=== PATIENT | male | born 1945 | race Caucasian/White ===

== ENCOUNTER 2019-02-09 18:46 | Emergency (ER) | payer MEDICARE, BC ==
--- OUTSIDE RECORDS SUMMARY | 2019-02-09 19:03 | XMS REPORT | Summary of Care ---
:1945 Author Organization [facility] Address [address] [facility] [place] [address] Care Team Providers Name Role Phone Rohan Shoemaker MD Primary Care Provider Reason for Visit Reason Comments Follow Up Encounter Details Date Type Department Care Team Description 01/30/2019 Office Visit Silvis Zhao Hernadez, Adenomatous polyp of ascending colon (Primary Dx); Surgery Infection of pacemaker pocket, initial encounter ([facility]) [facility] [place] [address] [place] [address] [phone] Allergies Active Allergy Reactions Severity Noted Date Comments Nizatidine GI Reaction 03/11/2004 Propoxyphene N-Apap GI Reaction 09/05/2007 Demerol GI Reaction 09/05/2007 Sulfa Antibiotics Rash 09/05/2007 documented as of this encounter (statuses as of 01/30/2019) Medications Medication Sig Dispensed Refills Start End Date Status Date ibuprofen (MOTRIN) Take 200 mg by 0 Active 200 MG Oral Tab mouth NEEDED for Pain. allopurinol take 1 tablet 90 Tab 3 Active (ZYLOPRIM) 100 MG by mouth once 8 Oral Tab daily Potassium 99 MG Take by mouth. 0 Active Oral Tab MAGNESIUM CITRATE Take by mouth. 0 Active PO methimazole TAKE 1/2 TABLET 45 Tab 3 Active (TAPAZOLE) 5 MG BY MOUTH DAILY 9 Oral TabIndications: Hyperthyroidism Pot & Sod Cit-Cit take 15 1419 mL 1 Active Ac (TRICITRATES) milliliters (1 9 550-500-334 MG/5ML tablespoonful) Oral Solution by mouth once daily carvedilol (COREG) TAKE 1 ATBLET 180 Tab 3 Active 25 MG Oral Tab BY MOUTH TWICE 9 A DAY WITH MEALS furosemide (LASIX) take 1 tablet 45 Tab 3 Active 40 MG Oral Tab by mouth every 9 other day atorvastatin take 1 tablet 90 Tab 3 Active (LIPITOR) 20 MG by mouth once 9 Oral Tab daily Omeprazole delayed take 1 capsule 180 Cap 3 Active rel cap 20 MG Oral by mouth twice 9 CAPSULE DELAYED a day RELEASE benazepril take 1 tablet 180 Tab 3 Active (LOTENSIN) 20 MG by mouth twice 9 Oral Tab a day warfarin (COUMADIN) Take 1-1.5 Tabs 120 Tab 3 Active 5 MG Oral by mouth DAILY. 9 TabIndications: As directed Paroxysmal atrial which is 5mg fibrillation (HCC) Sun and 7.5mg rest of week digoxin (LANOXIN, Take 0.125 mg 0 Active DIGITEK) 125 MCG by mouth DAILY. Oral Tab diazepam (VALIUM) Take 1 Tab by 60 Tab 0 Active 10 MG Oral mouth EVERY 9 TabIndications: TWELVE HOURS Arthralgia of both NEEDED (for knees restless leg). Tamsulosin HCl Take 1 Cap by 30 Cap 11 Active (FLOMAX) 0.4 MG mouth DAILY. 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 Elevated prostate specific antigen (PSA) 08/18/2017 ICD (implantable cardioverter-defibrillator), biventricular, in situ 2015 LBBB (left bundle branch block) 01/13/2016 Chronic systolic HF (heart failure) 01/13/2016 [facility] current use of anticoagulant therapy 06/04/2015 Overview: Managed by: [facility] Referring Provider: Joesph Indication: PAF Target Range: 2.0-3.0 Duration: Indefinite Additional factors influencing anticoagulation: Chads2 2 for hypertension and heart failure [id number] is 3 (age, hypertension and heart failure) Allopurinol (Zyloprim) increases Warfarin effect Ibuprofen (Motrin) increases anticoagulation and bleeding risk Tapazole (Methimazole) decreases Warfarin effect Omeprazole increases Warfarin effect Updated referral 05/2015, 03/2016, 07/2017 Updated orders 06/15/15, 07/08/16, 08/11/17 Atrial fibrillation 05/28/2014 BMI 30.0-30.9,adult 04/21/2013 Overview: This patient's BMI has been calculated and is above average, and BMI management plan is completed. General patient education discussion including: obesity-related excess mortality, weight loss link to reduction of risk factors for cardiac and other diseases, importance of long-term maintenance treatment in weight loss ASCVD (arteriosclerotic cardiovascular disease) 07/03/2012 Overview: 07/08/15: Pharmacologic Nuclear Stress Test Impression: A small area of mild fixed decreased perfusion appreciated in the mid anterior septal region of the left ventricle. Apical thinning is present. No evidence of significant reversible ischemia. Left ventricular ejection fraction 40%. 06/06/12: Left Heart Catheterization 30% proximal LAD stenosis 60% distal LAD stenosis 30-40% stenosis of lower branch of second diagonal 50% stenosis of proximal 2nd OM branch of the circumflex PLAN: 1. Postprocedure care. 2. Continue with aggressive risk factor modification and optimization of medications as tolerated. 3. If he develops chest discomfort or symptoms continue to worsen despite optimization of medical therapy, may consider fractional flow reserve of these lesions. 05/24/12: Coronary CTA IMPRESSION: 1. Moderate to severe obstructive coronary artery disease as described. 2. Normal LV size, mild concentric LVH, low normal global LV systolic function. 3. Normal LA, RA, RV size and function. 4. KELVIN with no thrombus, pulmonary veins with normal origins. 5. Structurally normal aortic and mitral valves. 6. No pericardial effusion. Abnormal cardiac CT angiography 06/06/2012 Thrombocytopenia 03/19/2012 Overview: On lab work since 2000, will watch periodically Dyslipidemia 05/03/2011 Cervical spondylosis without myelopathy 12/13/2010 Restless legs 06/13/2010 Paroxysmal atrial fibrillation 04/08/2010 GERD (gastroesophageal reflux disease) 12/02/2009 Sinoatrial node dysfunction 03/14/2008 Mobitz (type) II atrioventricular block 01/09/2008 Cardiac pacemaker in situ 11/02/2007 Overview: 06/11/04: Initial implantation of permanent pacemaker for syncope, left BBB, first degree AV block, chronotropic incompetence 03/31/08: Pacemaker Generator Replacement: Pulse Gen Mabie [id number] Altru A Guidant [id number] Implanted 06/11 / Serial # [id number] Atrial Lead: Guidant 4470 (implanted 06/11/04) / Serial # [id number] Ventriuclar Lead: Guidant 4088 flextend (implanted 06/11/04) / Serial # [id number] 09/07/15: Arrhythmia Center Interrogation Report There were several very brief (<10 seconds) episodes of atrial tachcardia. Pacemaker function appears normal. Calculus of kidney 10/25/2007 Overview: Uric acid Degeneration of lumbar or lumbosacral intervertebral disc 10/25/2007 First degree atrioventricular block 09/24/2007 Gout 09/11/2007 Hypertension, CARE PLAN INITIATED 09/05/2007 Nonischemic cardiomyopathy 09/05/2007 Overview: 06/29/15: Echocardiogram Left Ventricle Left ventricular size is mildly increased with mildly increased wall thickness. There is mild to moderate eccentric left ventricular hypertrophy. Global systolic function is moderately depressed, with an estimated ejection fraction of 35-40 %. There is moderate global hypokinesis with marked septal and apical dys-synchrony. FINAL IMPRESSION: Mild to moderate eccentric LVH with moderate global systolic dysfunction, EF 35-40%. Mild right heart enlargement with adequate RV function. No hemodynamically significant valve disease. No pulmonary hypertension. Meniere disease 09/05/2007 Hyperthyroidism 09/05/2007 Neck pain 09/05/2007 Overview: Two previous surgeries with anterior fusion of the neck. Pain in joint, shoulder region 07/04/2007 History of malignant neoplasm of kidney 04/11/2007 documented as of this encounter (statuses as of 01/30/2019) Resolved Problems Problem Noted Date Resolved Date Patient in clinical research study 02/11/2016 09/30/2016 Overview: NCT# [id number] QUARTET: study is to assess the safety of the Quartet 1457Q lead in patients who need resynchronization therapy (FACILITY MANAGER). Questions please contact Randell Cuba or Malu Ana Maria, Clinical Research at . Abnormal ventricular wall motion 05/03/2011 05/08/2014 Overview: 04/21/10: Persantine Pharmacologic Nuclear Stress Test Conclusions: A small area of moderate decreased perfusion noted in the mid anterior septal as well as mid to basilar inferior septal region of the left ventricle. Enlarged left ventricle with a depressed left ventricular ejection fraction at 38%. No evidence of significant reversible ischemia. Mechanical complication due to cardiac pacemaker (electrode) 03/17/200803/03 Acquired absence of kidney 11/02/2007 04/14/2009 Malignant neoplasm of kidney, except pelvis 10/25/2007 03/03/2009 Vertigo 09/11/2007 03/03/2009 Personal History of Kidney Stones 09/05/2007 01/05/2015 Overview: CT scan, 01/18/2007, showed bilateral renal stones, none obstructing ureters. documented as of this encounter (statuses as of 01/30/2019) Immunizations Name Administration Dates Next Due Depo Medrol (40mg) 05/13/2010 Hepatitis A Vaccine-Adult 06/09/2016 Influenza (IM) Preservative Free 03/07/2014, 03/28/2013, 03/14/2012, 04/08/2010 Influenza Vaccine High Dose 03/13/2018, 03/02/2017, 03/31/2016, 03/27/2015 Influenza Vaccine Whole 04/08/2009, 04/07/2008, 03/28/2007 PNEUMOCOCCAL POLYSACCHARIDE VACCINE 08/12/2009 Pneumococcal Conjugate(13 Valent) 08/26/2014 TDAP Vaccine 06/09/2016 documented as of this encounter Social History Tobacco Use Types Packs/Day Years Used Date Never Smoker Smokeless Tobacco: Never Used Alcohol Use Drinks/Week oz/Week Comments No 0 Standard drinks or equivalent 0.0 Sex Assigned at Date Recorded Not on file Job Start Date Occupation Industry Not on file Not on file Not on file Travel History Travel Start Travel End No recent travel history available. documented as of this encounter Last Filed Vital Signs Vital Sign Reading Time Taken Comments Blood Pressure 130/80 01/30/2019 1:29 PM EDT Pulse - - Temperature - - Respiratory Rate - - Oxygen Saturation - - Inhaled Oxygen Concentration - - Weight - - Height - - Body Mass Index - - documented in this encounter Progress Notes Zhao Torres MD - 01/30/2019 1:15 PM EDT [facility] Progress Note [address] [place] [address] Name: Demetrius Roe : 1945 Age: 73-y.o. CLINIC VISIT DATE: 01/30/2019 LOCATION: [facility] ATTENDING: Zhao Torres MD PCP: Rohan Shoemaker History of Present Illness Demetrius Roe is a 73-y.o. male with a history of a large adenomatous polyp of the ascending colon that was removed after a couple of colonoscopies last year. The pathology was consistent with tubular adenomatous and tubulovillous adenomatous change. There is no dysplastic disease. The last colonoscopy was done in late January and at that time all of the visible polyp had been removed and fulgurated. The patient has not had any major change down his bowels. He denies any rectal bleeding. He has had some upper GI distress at times. However, he is most concerned right now of intense fatigue that he has been experiencing. He has nostamina for physical activities. He is comfortable if he is just resting in the house but if he tries to do any work outside he is completely wiped out in 10 to 15 minutes. This is not associated with chest pain though he is never had chest pain with his heart disease. Physical Exam Vitals: Blood pressure 130/80., There is no height or weight on file to calculate BMI. Alert and oriented x3. Anicteric. Chest clear to auscultation. Heart S1-S2. Abdomen is soft and nontender. Data Review Labs: Lab Results Component Value Date WBC Count 5.52 09/11/2018 Hemoglobin 15.5 09/11/2018 Hematocrit 49.0 09/11/2018 Platelet Count 115 (L) 09/11/2018 , Lab Results Component Value Date Sodium 137 09/11/2018 Potassium 3.8 09/11/2018 Chloride 100 09/11/2018 CO2 27 09/11/2018 Glucose 105 (H) 09/11/2018 BUN 22 (H) 09/11/2018 Creatinine 1.1 09/11/2018 Calcium 9.3 09/11/2018 Total Protein 7.0 09/11/2018 Albumin 4.1 09/11/2018 AST 39 09/11/2018 ALT 40 09/11/2018 Alkaline Phosphatase 61 09/11/2018 Total Bilirubin 0.7 09/11/2018 Studies: Colonoscopy reports and pathology reports from last year are reviewed. Assessment and Plan: . 73-year-old gentleman with history of significant cardiac disease resents for a one-year follow-up after piecemeal snare excision of a large ascending colon polyp. He is doing well from a GI perspective except for occasional upper GI discomfort that may be related to some element of reflux. However,this occurs despite being on Prilosec twice a day. The chief concern though is his lack of stamina and the concern for worsening of his overall cardiaccondition. 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 I do think it is most appropriate at this time to hold on a repeat colonoscopic exam. I think it isabsolutely reasonable to wait 1 more year given the findings at his most recent colonoscopy and the pathology from the tissue. Therefore, we will facilitate the patient being seen by Dr. Chan in the GI clinic in one years time. At that time, he can be prepared for repeat colonoscopy as well as a repeat upper GI endoscopy, if it is felt appropriate. The patient and his understand. They will call in the interim if they have questions or concerns. Author: Zhao Torres MDElectronically signed by Zhao Torres MD at 12/2018 1:56 PM EDTdocumented in this encounter Plan of Treatment Date Type Specialty Care Team Description 01/31/2019 AntiCoag Anticoagulation 02/04/2019 Office Visit Cardiology Ethan Sanchez MD [facility] [place] [address] [phone] 02/05/2019 [facility] Arrhythmia Center 02/22/2019 GI Procedure Gastroenterology Dhara Chan MD [address] [place] [address] [phone] 05/13/2019 Office Visit Internal Medicine Rohan Shoemaker MD [address] [place] [address] [phone] 06/17/2019 [facility] Arrhythmia Center 07/17/2019 Office Visit Cardiology Ethan Sanchez MD [address] [place] [id number] [phone] 10/15/2019 [facility] Health Maintenance Due Date Last Done Comments ZOSTER IMMUNIZATION SERIES 12/10/1993 (1 of 2) FALL RISK ASSESSMENT 12/10/2008 MEDICARE ANNUAL WELLNESS 10/27/2017 10/27/2016 (Postponed), VISIT 01/05/2015 (Previously completed) DEPRESSION SCREENING 11/06/2018 11/06/2017 INFLUENZA VACCINE (#1) 2019 03/13/2018, 03/02/2017, 03/31/2016, Additional history exists LIPID DISORDER SCREENING 11/13/2019 11/12/2018, 09/11/2018, 03/20/2018, Additional history exists EGD (ESOPHAGODUODENOSCOPY) 01/05/2021 01/05/2018, 10/21/2014, 10/21/2014 COLONOSCOPY SCREENING 02/19/2021 02/19/2018, 01/05/2018, 10/21/2014, Additional history exists PNEUMOCOCCAL 65+YRS Completed 08/26/2014, 08/12/2009 HPV IMMUNIZATION SERIES Aged Out No longer eligible based on patient's age to complete this topic MENINGOCOCCAL VACCINE IMM Aged Out No longer eligible based on patient's age to complete this topic documented as of this encounter Goals Goal Patient Goal Associated Recent Patient-Stated? Author Type Problems Progress Blood Pressure Blood Pressure Hypertension, 130/80 No Skezas, < 140/90 CARE PLAN (01/30/2019 MD Rohan INITIATED 1:29 PM EDT) Note: Hypertension Care Plan Based on the patient's clinical history and according to JNC 8 guidelines target blood pressure goal is less than 140/90. Based on the patient's last blood pressure of BP: 122/70 mmHg the patient is at at goal. As your provider, it is important that I advise you regarding: your current medications and help you with any challenges you may face taking your medications as directed (ex. instructions, cost, side effects, and interactions). Important lifestyle changes: exercise, weight reduction, diet, dietary sodium reduction and medication compliance your clinical goals and how you can achieve success: weight reduction, exercise plan and diet improvements medication management: adjusted medications as appropriate patient education/self-management tools provided: Current self-management tools adequate To successfully manage my Hypertension I will: monitor my blood pressure daily, understanding that my goal is less than 140/ 90 per my healthcare provider's recommendation. I will schedule an appointment with my provider if consistent abnormal readings greater than 160/100. take medications every day as prescribed by my healthcare provider and if unable to take them I will discuss with my provider. monitor for symptoms of chest pain, chest tightness/pressure, irregular heartbeat, persistent dizziness, radiating arm pain, and neck or jaw pain. If any of these symptoms are noticed I will seek medical attention immediately by calling 911 exercise/walk 30 minutes 5 day(s) per week. If I experience chest pain, chest tightness, or shortness of breath, I will seek medical attention immediately. follow a diet rich in fruits, vegetables, and low-fat dairy products with reduced content of saturated & total fat. I will reduce my sodium intake daily. An example is the DASH diet. To obtain more information please refer to the DASH Eating Plan listed in Educational Resources. record my blood pressure results. SCADA Access[employer]ki is safe and secure way for you to do this in your medical record online. try to obtain an ideal body weight. My recent weight was Weight: 220 lb ( 99.791 kg). My weight loss goal for my next office visit is 215 lbs. limit alcohol consumption. For men two drinks per day and women one drink per day. if currently smoking, will discuss how to quit smoking with my healthcare provider and work towards quitting. Educational Resources: National Heart, Lung, & Blood Wann http://nhlbi.nih.gov/hbp/index.html The DASH Diet Eating Plan http://www.nhlbi.nih.gov/health/health-topics/ topics/dash/ Academy of Nutrition & DIetetics http://eatright.org National Smoking Cessation Site http://smokefree.gov Blood Pressure < Blood Pressure 130/80 (01/30/2019 1:29 No Rohan Shoemaker MD 150/90 PM EDT) Note: This is an individualized treatment (blood pressure) goal for Demetrius Roe: Displayed above (on the left) is your goal for blood pressure control. Your most recent blood pressure is also shown above, on the right. You should try to achieve blood pressures that are lower than your goal listed above (on the left). Weight increase vs. 18 mo min CHF 0 (01/15/2019 3:14 PM EDT) Rohan Leonard MD (lbs) < 5 Note: This is an individualized treatment (congestive heart failure, CHF) goal for Demetrius Roe: Displayed above (on the right) is how many pounds you are in excess of your lowest weight over the past 18 months. Note that lower numbers are better. Excessive weight gain often indicates fluid reten tion and worsening heart failure. You should contact your doctor immediately if the above number is too high (above your goal, the number on the left). Consume a [id number] diet Lifestyle No Rohan Shoemaker MD Note: This is an individualized lifestyle goal for Demetrius Roe: Please do not add additional salt to your food. Additional salt may lead to fluid retention and worsen your congestive heart failure. Take all prescribed medications as directed Self-management Rohan Leonard MD Note: This is an individualized self-management goal for Demetrius Roe: Please take all prescribed medications as directed. 1. Do not skip doses. If you cannot afford your medications, talk with your doctor. 2. Use a pill reminder system such as a pill box if needed. Your pharmacist can help you with this. 3. Contact your Pharmacy 5 days before your medication runs out. If you cannot take your medications for any reasons, talk with your doctor. 4. Please bring all of your medication bottles and inhalers (or a list of all your medications/inhalers) with you to every visit. Potential barriers to meeting all of your care plan goals will continue to be addressed on an ongoing basis. Check your weight daily Self-management Rohan Leonard MD Note: This is an individualized self-management goal for Demetrius Roe: Please check your weight daily. Refer to the accompanying CHF treatment goal and call your doctor immediately for further instructions on how to respond to unexpected weight gain. documented as of this encounter Implants Implanted Type Area Efficiency Miner Device Shelf Model / Identifier Expiration Serial / Date Lot Altrua 20 Left: GUIDANT CARDIAC [id number] / Implanted: Qty: 1 on 03/31/2008 at [facility] [employer] , [place] [id number] / Lda 210q/65 Optisure - [id number] N/A: Chest [facility], 2016 [id number] / Implanted: Qty: 1 on 02/11/2016 by Randell Cuba MD at [facility] [id number] / Optisense Lead - [id number] N/A: Chest [facility], [id number] / Implanted: Qty: 1 on 02/11/2016 by Randell Cuba MD at [facility] [id number] / Quadra Assura Mp [id number] Paint Maker-D - [id number] N/A: Chest [facility] , 12/23/2017 [id number] / Implanted: Qty: 1 on 02/11/2016 by Randell Cuba MD at [facility] [id number] / Quartet Lead [id number] N/A: Chest [facility] 1457Q-86 / Implanted: Qty: 1 on 02/11/2016 by Randell Cuba MD at [facility]/PACESETTE [id number] / R documented as of this encounter Results Not on filedocumented in this encounter Visit Diagnoses Diagnosis Adenomatous polyp of ascending colon - Primary Infection of pacemaker pocket, initial encounter (HCC) documented in this encounter Insurance Payer Benefit Plan / Subscriber ID Effective Dates Phone Address Type Group MEDICARE MEDICARE PART A & xxxxxxxxxxx 2008-Present Medicare B [employer] xxxxxxxxx Effective for all [place] dates (Home) [phone] [place] [address] (Work) documented as of this encounter
--- OUTSIDE RECORDS SUMMARY | 2019-02-09 19:03 | XMS REPORT | Summary of Care ---
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 allopurinol (ZYLOPRIM) take 1 tablet by 90 Tab 3 02/22/2018 Active 100 MG Oral Tab mouth once daily Potassium 99 MG Oral Take by mouth. 0 Active Tab MAGNESIUM CITRATE PO Take by mouth. 0 Active methimazole (TAPAZOLE) TAKE 1/2 TABLET BY 45 Tab 3 07/24/2018 Active 5 MG Oral MOUTH DAILY TabIndications: Hyperthyroidism Pot & Sod Cit-Cit Ac take 15 1419 mL 1 10/10/2018 Active (TRICITRATES) milliliters (1 550-500-334 MG/5ML tablespoonful) by Oral Solution mouth once daily carvedilol (COREG) 25 TAKE 1 ATBLET BY 180 Tab 3 10/16/2018 Active MG Oral Tab MOUTH TWICE A DAY WITH MEALS furosemide (LASIX) 40 take 1 tablet by 45 Tab 3 11/12/2018 Active MG Oral Tab mouth every other day atorvastatin (LIPITOR) take 1 tablet by 90 Tab 3 11/12/2018 Active 20 MG Oral Tab mouth once daily Omeprazole delayed rel take 1 capsule by 180 Cap 3 11/12/2018 Active cap 20 MG Oral CAPSULE mouth twice a day DELAYED RELEASE benazepril (LOTENSIN) take 1 tablet by 180 Tab 3 11/12/2018 Active 20 MG Oral Tab mouth twice a day warfarin (COUMADIN) 5 Take 1-1.5 Tabs by 120 Tab 3 2018 Active MG Oral mouth DAILY. As TabIndications: directed which is Paroxysmal atrial 5mg Sun and 7.5mg fibrillation (HCC) rest of week diazepam (VALIUM) 10 Take 1 Tab by 60 Tab 0 01/15/2019 Active MG Oral mouth EVERY TWELVE TabIndications: HOURS NEEDED Arthralgia of both (for restless knees leg). Tamsulosin HCl Take 1 Cap by 30 Cap 11 01/15/2019 Active (FLOMAX) 0.4 MG Oral mouth DAILY. 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 06/04/2015 Overview: Managed by: [facility] Referring Provider: Joesph Indication: PAF Target Range: 2.0-3.0 Duration: Indefinite Additional factors influencing anticoagulation: Chads2 2 for hypertension and heart failure [id number] is 3 (age, hypertension and heart failure) [...] incompetence 03/31/08: Pacemaker Generator Replacement: Pulse Gen Jadwin [id number] Altru A Guidant [id number] Implanted 06/11 / Serial # [id number] Atrial Lead: Guidant 4470 (implanted 06/11/04) / Serial # [id number] Ventriuclar Lead: Guidant 4088 flextend (implanted 06/11/04) / Serial # [id number] 09/07/15: Arrhythmia Center Interrogation Report There were [...] as of this encounter (statuses as of 02/06/2019) Resolved Problems Problem Noted Date Resolved Date Patient in clinical research study 02/11/2016 09/30/2016 Overview: NCT# [id number] QUARTET: study is to assess the safety of the Quartet 1457Q lead in patients who need resynchronization therapy (WELLNESS DIRECTOR). Questions please contact Randell Cuba or Malu Rodgers, Clinical Research at . Abnormal ventricular wall [...] as of this encounter (statuses as of 02/06/2019) Immunizations Name Administration Dates Next Due Depo [...] Sign Reading Time Taken Comments Blood Pressure - - Pulse - - Temperature 36.2 02/05/2019 10:15 AM EDT C (97.2 F) Respiratory Rate - - Oxygen Saturation - - Inhaled Oxygen Concentration - - Weight 82.8 kg (182 lb 8 oz) 02/05/2019 10:15 AM EDT Height 175.3 cm (5' 9") 02/05/2019 10:15 AM EDT Body Mass Index 26.95 02/05/2019 10:15 AM EDT documented in this encounter Discharge Summaries Ethan Sanchez MD - 02/05/2019 11:50 AM EDTBrief Cardiology Note ( Duplicate): Patient arrived for planned cardioversion but EKG on arrival showed A-sensed V- paced rhythm. Deviceinterrogation confirmed that patient had converted from atrial flutter to sinus since his office visit with me yesterday. As such, Arrhythmia Center device interrogation was completed (LV lead capturethreshold was higher so outputs adjusted), but patient sent home without procedure. Will f/u with me in the office in the next 3-4 months and continue his current medications in the meantime. Ethan Sanchez MDElectronically signed by Ethan Sanchez MD at 2018 12:13 PM EDTdocumented in this encounter Progress Notes Ethan Sanchez MD - 02/05/2019 11:[facility] Patient arrived for planned cardioversion but EKG on arrival showed A-sensed V- paced rhythm. Deviceinterrogation confirmed that patient had converted from atrial flutter to sinus since his office visit with me yesterday. As such, Arrhythmia Center device interrogation was completed (LV lead capturethreshold was higher so outputs adjusted), but patient sent home without procedure. Will f/u with me in the office in the next 3-4 months and continue his current medications in the meantime. Ethan Sanchez MD documented in this encounter Plan of Treatment Date Type Specialty Care Team Description 02/27/2019 AntiCoag Anticoagulation 02/27/2019 Office Visit Cardiology Ethan Sanchez MD [address] [place] [address] [phone] 05/13/2019 Office Visit Internal Medicine Rohan Shoemaker MD [address] [place] [address] [phone] 06/17/2019 [facility] Arrhythmia Center 07/17/2019 Office Visit Cardiology Ethan Sanchez MD [address] [place] [address] [phone] 10/15/2019 [facility] Arrhythmia Center Name Type Priority Associated Diagnoses Order Schedule MAGNESIUM LEVEL Lab Routine Paroxysmal atrial fibrillation Expected: 2018 (HCC) (Approximate), Expires: 02/05/2020 Health Maintenance Due Date Last Done Comments [...] Problems Progress Blood Pressure Blood Pressure Hypertension, 132/82 No [place], < 140/90 CARE PLAN (02/04/2019 MD Rohan INITIATED 4:18 PM EDT) Note: Hypertension Care Plan Based [...] Educational Resources. record my blood pressure results. [employer] Test[employer] is safe and secure way for you [...] Educational Resources: National Heart, Lung, & Blood [place] http://nhlbi.nih.gov/hbp/index.html The DASH Diet Eating Plan http://www.nhlbi.nih.gov/health/health-topics/ topics/dash/ Academy of Nutrition & DIetetics http://eatright.org National Smoking Cessation Site http://smokefree.gov Blood Pressure < Blood Pressure 132/82 (02/04/2019 4:18 No Rohan Shoemaker MD 150/90 PM EDT) [...] the left). Weight increase vs. 18 mo CHF 1.5 (02/05/2019 10:15 AM EDT) Rohan Leonard MD min (lbs) < 5 Note: This is an [...] the number on the left). 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, 2016 [id number] / Implanted: Qty: 1 on 02/11/2016 by Randell Cuba MD at [facility] [id number] / Optisense Lead - [id number] N/A: Chest [facility], [id number] / Implanted: Qty: 1 on 02/11/2016 by Randell Cuba MD at [facility] [id number] / Keshava Cindy Mp [id number] Surgical Lead-D - [id number] N/A: Chest [facility] , 12/23/2017 [id number] / Implanted: Qty: 1 on 02/11/2016 by Randell Cuba MD at [facility] [id number] / Quartet Lead [id number] N/A: Chest [facility] [id number]-86 / Implanted: Qty: 1 on 02/11/2016 by Randell Cuba MD at [facility]/PACESETTE [id number] / R documented as of this encounter Procedures Procedure Name Priority Date/Time Associated Diagnosis Comments IN PT/ED 12 LEAD STAT 02/05/2019 10:13 Persistent atrial Results for this EKG AM EDT fibrillation (HCC) procedure are in the results section. documented in this encounter Results IN PT/ED 12 LEAD EKG (02/05/2019 10:13 AM EDT) Ventricular Rate 72 BPM CARDIOLOGY DEPARTMENT Atrial rate 72 BPM CARDIOLOGY DEPARTMENT P-R Interval 138 ms CARDIOLOGY DEPARTMENT QRS Duration 164 ms CARDIOLOGY DEPARTMENT Q-T Interval 464 ms CARDIOLOGY DEPARTMENT QTC Calculation 508 ms CARDIOLOGY (Bezet) DEPARTMENT P [place] 91 degrees CARDIOLOGY DEPARTMENT R [place] -63 degrees CARDIOLOGY DEPARTMENT T [place] 100 degrees CARDIOLOGY DEPARTMENT Diagnosis Line Atrial-sensed ventricular-paced rhythm CARDIOLOGY Abnormal ECG DEPARTMENT When compared with ECG of 12-JUL-2018 14:51, Sinus rhythm has replaced Atrial-paced rhythm Confirmed by KARI KELLY ([id number]) ([id number]) on 02/06/2019 11:53:57 AM Specimen Performing Organization Address City/State/Zipcode Phone Number CARDIOLOGY DEPARTMENT documented in this encounter Visit Diagnoses Diagnosis Paroxysmal atrial fibrillation (HCC) Atrial fibrillation documented in this encounter (Work) documented as of this encounter Advance Directives Code Status Date Activated Date Inactivated Comments Full Code 02/05/2019 9:59 AM Does the patient have decision making capacity? Yes Order was discussed with: Patient I discussed all options and patient/surrogate requested and agreed to: Full Code
--- OUTSIDE RECORDS SUMMARY | 2019-02-09 19:03 | XMS REPORT | Summary of Care ---
:1945 Author Organization [facility] Address [address] [place] [address] Care Team Providers Name Role Phone Rohan Shoemaker MD Primary Care Provider Reason for Visit Reason Comments Breathing Problem Pt. reports an increase of Shortness of Breath. Reports an increase in AFIB. Fatigue Pt. reports an increase in Fatigue over the past few months. Medication Management Pt. reports off Digoxin at this time. Encounter Details Date Type Department Care Team Description 02/04/2019 Office Visit [facility] [facility], Paroxysmal atrial fibrillation (HCC) (Primary Dx); Cardiology MD Ethan Chronic systolic HF (heart failure) (HCC); [address] [facility] ICD (implantable cardioverter-defibrillator), biventricular, [place] [address] [place] [address] [phone] Allergies Active Allergy Reactions Severity Noted Date Comments Nizatidine GI Reaction 03/11/2004 Propoxyphene N-Apap GI Reaction 09/05/2007 Demerol GI Reaction 09/05/2007 Sulfa Antibiotics Rash 09/05/2007 documented as of this encounter (statuses as of 02/04/2019) Medications Medication Sig Dispensed Refills Start End [...] (HCC) Sun and 7.5mg rest of week diazepam (VALIUM) Take 1 Tab by 60 Tab 0 Active 10 MG Oral mouth EVERY 9 TabIndications: TWELVE HOURS Arthralgia of both NEEDED (for knees restless leg). Tamsulosin HCl Take 1 Cap by 30 Cap 11 Active (FLOMAX) 0.4 MG mouth DAILY. 9 Oral Cap amLodipine take 1 tablet 90 Tab 3 Active (NORVASC) 5 MG Oral by mouth once 9 Tab daily digoxin (LANOXIN, Take 0.125 mg 0 02/05/20 Discontinued DIGITEK) 125 MCG by mouth DAILY. 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 06/04/2015 Overview: Managed by: [facility] Referring Provider: Joesph Indication: PAF Target Range: 2.0-3.0 Duration: Indefinite Additional factors influencing anticoagulation: Chads2 2 for hypertension and heart failure [id number] is 3 (age, hypertension and heart failure) [...] incompetence 03/31/08: Pacemaker Generator Replacement: Pulse Gen [id number] Altru A Guidant 4470 Implanted 06/11 / Serial # [id number] Atrial Lead: Guidant 4470 (implanted 06/11/04) / Serial # [id number] Ventriuclar Lead: Guidant 4088 flextend (implanted 06/11/04) / Serial # [id number] 09/07/15: [facility]ia Center Interrogation Report There were [...] as of this encounter (statuses as of 02/04/2019) Resolved Problems Problem Noted Date Resolved Date Patient in clinical research study 02/11/2016 09/30/2016 Overview: NCT# [id number] QUARTET: study is to assess the safety of the Quartet 1457Q lead in patients who need resynchronization therapy (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 Questions please contact Randell Cuba or Malu [...] as of this encounter (statuses as of 02/04/2019) Immunizations Name Administration Dates Next Due Depo [...] Sign Reading Time Taken Comments Blood Pressure 132/82 02/04/2019 4:18 PM EDT Pulse 80 02/04/2019 4:18 PM EDT Temperature - - Respiratory Rate - - Oxygen Saturation - - Inhaled Oxygen Concentration - - Weight 82.1 kg (181 lb) 02/04/2019 4:18 PM EDT Height 177.8 cm (5' 10") 02/04/2019 4:18 PM EDT Body Mass Index 25.97 02/04/2019 4:18 PM EDT documented in this encounter Patient Instructions Patient InstructionsEthan Sanchez MD - 02/04/2019 4:20 PM EDT No medication changes today. As we discussed, we'll try to get a cardioversion done tomorrow when you' re there for the device check. We'll get your labs checked first thing when you get there tomorrow. Follow up with me a couple weeks after the cardioversion. documented in this encounter Progress Notes Ethan Sanchez MD - 02/04/2019 4:20 PM EDT [place] [facility] Note Patient: Demetrius Roe Date of : 1945 Date of Service: 02/04/2019 REFERRING PRACTITIONER: Rohan Shoemaker PRIMARY CARE PROVIDER: Rohan Shoemaker Chief Complaint: Chief Complaint Patient presents with Breathing Problem Pt. reports an increase of Shortness of Breath. Reports an increase in AFIB. Fatigue Pt. reports an increase in Fatigue over the past few months. Medication Management Pt. reports off Digoxin at this time. History of Present Illness: We had the pleasure of seeing Demetrius Roe today at the [facility]. He is a 73-y.o. 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 Mr. Roe returns to cardiology clinic today for close f/u after his ICD interrogations have shownpersistent atrial flutter since November. Since his last visit with me he reports that he's been quite exhausted with smaller amounts of activity than in the past. He's also noted some mild dyspnea in the AM, which usually occurs when he's lying down. Gets occasional palpitations but no lightheadednessor syncope. No chest pains/pressure. Weight has been stable. No LE edema. I had been in touch with him shortly after his interrogation results and he tried restarting digoxin to help improve his rates. This did not change symptoms at all so he's now off that again. No bleeding issues on warfarinand INR has been in therapeutic range for over 3 months. Patient Active Problem List Diagnosis History of malignant neoplasm of kidney Pain in joint, shoulder region Hypertension, CARE PLAN INITIATED Nonischemic cardiomyopathy (HCC) Meniere disease Hyperthyroidism Neck pain Gout First degree atrioventricular block Calculus of kidney Degeneration of lumbar or lumbosacral intervertebral disc Cardiac pacemaker in situ Mobitz (type) II atrioventricular block Sinoatrial node dysfunction (HCC) GERD (gastroesophageal reflux disease) Paroxysmal atrial fibrillation (HCC) Restless legs Cervical spondylosis without myelopathy Dyslipidemia Thrombocytopenia (HCC) Abnormal cardiac CT angiography ASCVD (arteriosclerotic cardiovascular disease) BMI 30.0-30.9,adult 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 LBBB (left bundle branch block) Chronic systolic HF (heart failure) (HCC) ICD (implantable cardioverter-defibrillator), biventricular, in situ Elevated prostate specific antigen (PSA) Central serous chorioretinopathy of right eye Adenomatous polyp of ascending colon Infection of pacemaker pocket ([facility]) Past Medical History: Diagnosis Date Actinic keratosis AF (paroxysmal atrial fibrillation) ([facility]) Arthritis Asthma Blood in urine Cardiomyopathy ([facility]) 09/05/2007 Chronic systolic HF (heart failure) ([facility]) 01/13/2016 Endocrine problem Fainting Fractures Gout Headache(784.0) Hypertension 09/05/2007 Hyperthyroidism 09/05/2007 ICD (implantable cardioverter-defibrillator), biventricular, in situ 2015 Intermediate coronary syndrome (HCC) LBBB (left bundle branch block) 09/05/2007 Leg swelling Meniere disease 09/05/2007 Neck pain 09/05/2007 Nonspecific abnormal electrocardiogram (ECG) (EKG) Other malignant neoplasm without specification of site renal Personal History of Kidney Stones 09/05/2007 Problems with hearing Reflux Renal cell carcinoma (HCC) Subjective visual disturbance, unspecified Unspecified essential hypertension Vertigo 09/11/2007 Past Surgical History: Procedure Laterality Date CATHETERIZATION HEART LEFT 06/06/2012 Procedure: CATHETERIZATION HEART LEFT; Surgeon: Donte Brown MD; Location: [facility]; Laterality:N/A; LT HEART CATH VIA LT RADIAL & HEMOBAND CHOLECYSTECTOMY 1995 COLONOSCOPY N/A 02/19/2018 Procedure: COLONOSCOPY WITH complex polypectomy from the ascending colon; Surgeon: Zhao Torres MD; Location: [facility] MAIN OR INSERT PERMNT PACEMAKER,INITIAL/REPLACEMENT,TYPE DEV NS 06/11/04 generator change 03/31/08 INSERTION BI-VENTRICULAR ICD N/A 02/11/2016 Procedure: INSERTION BI-VENTRICULAR ICD; Surgeon: Randell Cuba MD; Location: [facility] CCL OTHER CERVICAL FUSION 1996 C7-T1 NC ANESTH,KID STONE DESTRUCT 11/1999 Bi-lateral renal stones NC PARTIAL REMOVAL OF KIDNEY On left, for renal cell carcinoma. NC REMOVAL GALLBLADDER TOTAL HIP REPLACEMENT Right hip. Allergies Allergen Reactions Axid [Nizatidine] GI Reaction Darvocet [Propoxyphene N-Apap] GI Reaction Demerol GI Reaction Sulfa Antibiotics Rash Current Outpatient Medications Medication allopurinol (ZYLOPRIM) 100 MG Oral Tab amLodipine (NORVASC) 5 MG Oral Tab atorvastatin (LIPITOR) 20 MG Oral Tab benazepril (LOTENSIN) 20 MG Oral Tab carvedilol (COREG) 25 MG Oral Tab diazepam (VALIUM) 10 MG Oral Tab digoxin (LANOXIN, DIGITEK) 125 MCG Oral Tab furosemide (LASIX) 40 MG Oral Tab ibuprofen (MOTRIN) 200 MG Oral Tab MAGNESIUM CITRATE PO methimazole (TAPAZOLE) 5 MG Oral Tab Omeprazole delayed rel cap 20 MG Oral CAPSULE DELAYED RELEASE Pot & Sod Cit-Cit Ac (CYTRA-3) 550-500-334 MG/5ML Oral Syrup Potassium 99 MG Oral Tab warfarin (COUMADIN) 5 MG Oral Tab Family History Problem Relation Age of Onset Cancer Father Prostate Diabetes Mother Heart Mother angina Social History Socioeconomic History Marital status: Spouse name: Not on file Number of children: Not on file Years of education: Not on file Highest education level: Not on file Occupational History Not on file Social Needs Financial resource strain: Not on file Food insecurity: Worry: Not on file Inability: Not on file Transportation needs: Medical: Not on file Non-medical: Not on file Tobacco Use Smoking status: Never Smoker Smokeless tobacco: Never Used Substance and Sexual Activity Alcohol use: No Alcohol/week: 0.0 standard drinks Drug use: Yes Types: Prescription Sexual activity: Never Lifestyle Physical activity: Days per week: Not on file Minutes per session: Not on file Stress: Not on file Relationships Social connections: Talks on phone: Not on file Gets together: Not on file Attends hoahaoism service: Not on file Active member of club or organization: Not on file Attends meetings of clubs or organizations: Not on file Relationship status: Not on file Intimate partner violence: Fear of current or ex partner: Not on file Emotionally abused: Not on file Physically abused: Not on file Forced sexual activity: Not on file Other Topics Concern Not on file Social History Narrative Not on file Review of Systems - Negative except as noted in HPI. Physical Exam: Vitals: 02/04/19 1618 BP: 132/82 BP Location: Right arm Patient Position: Sitting Pulse: 80 Weight: 181 lb (82.1 kg) Height: 5' 10" (1.778 m) Body mass index is 25.97 kg/m. General: Well nourished, alert 73-y.o. male in NAD HEENT: anicteric, MMM, no E/E OP, conj pink Neck: JVP approx 5-6 cm above RA, no carotid bruits or LAD CV: RRR, normal s1/s2, no appreciable murmurs, rubs, or gallops Pulm: CTA bilaterally without wheezes, rhonchi, or rales. No increased work of breathing. Abd: soft, NT, ND, +BS. No appreciable pulsatile masses or bruits. Ext: Trace bilateral lower extremity edema, no cyanosis, no cords, redness, or warmth, 2+ distal pulses Neuro: no gross focal deficits Labs: Lab Results Component Value Date NA 137 09/11/2018 K 3.8 09/11/2018 CL 100 09/11/2018 CO2 27 09/11/2018 GLUCOSE 105 (H) 09/11/2018 BUN 22 (H) 09/11/2018 CREATININE 1.1 09/11/2018 CALCIUM 9.3 09/11/2018 TP 7.0 09/11/2018 ALBUMIN 4.1 09/11/2018 AST 39 09/11/2018 ALT 40 09/11/2018 ALK 61 09/11/2018 TBILI 0.7 09/11/2018 EGFR >60 09/11/2018 No results found for: BNP Lab Results Component Value Date CHOL 159 09/11/2018 TRIG 150 (H) 09/11/2018 HDL 43 09/11/2018 LDL 86 09/11/2018 LDLHDLRATIO 2.0 09/11/2018 CHOLHDLRATIO 3.7 09/11/2018 Cardiac Studies: EKG Today (I personally reviewed): Atypical atrial flutter with ventricular pacing at 80 bpm. ICD Interrogation 11/27/18: This is an unscheduled visit and is performed remotely due to increased AF burden. Ventricular pacing with capture and atrial sensing is seen at the time of this transmission. Mr. Roe went into atrial flutter on 11/24/18 and remains in it at this time. This is the first and only episode since last interrogation on 10/15/18. Heart rates range between 70-80 bpm the majority of the time. When in atrial flutter, heart rates range between 80-140 bpm, <1% of the time it does conduct up to 170 bpm which falls into the VT zone (monitor) . CorVue Impedance monitoring shows no decrease in thoracic impedance measurements. If decreased, this would indicate that possible fluid accumulation was occurring at that time. Implantable Cardioverter Defibrillator function appears normal. These TTE 07/11/18: FINAL IMPRESSION: Mild concentric LVH with upper normal left atrial size. Mildly reduced LV systolic function with global hypokinesis; estimated LVEF 45-50%. Upper normal right heart size with normal RV contractility. No structurally or hemodynamically significant valvular disease. No pericardial effusion. Compared to prior echo report 01/13/2016, LVEF has improved. ICD Interrogation 06/15/18: This visit was performed remotely. Atrial and ventricular pacing with capture was seen at the time of this transmission. Atrial fibrillation has occurred 3.2 % with the longest episode lasting for <4hours. There was one episode of supraventricular tachycardia in April. There have been no episodes of ventricular tachycardia. CorVue Impedance monitoring shows a decrease in thoracic impedance measurements for 19 days between February and March and 9 days in April. This would indicate that possible fluid accumulation was occurring at that time. Implantable Cardioverter Defibrillator function appears normal. Limited TTE 08/15/16: FINAL IMPRESSION: This is a limited and focused study for LVEF . Contrast agent "Definity" was used for better endocardial definition. LV size is mildly dilated , with mild LVH and LV systolic function is Moderately abnormal(30-40% for both sexes-2015 guidelines) , with regional wall motion abnormality/ies and estimated ejection fraction of 35 %.(see text). Consider further evaluation by CT/MRI of heart if clinically indicated. I had personally reviewed this study after it was done and I calculated an LVEF of 44% by volumetric analysis TTE 01/13/16: FINAL IMPRESSION: Left ventricular cavity size is mildly dilated. Global systolic function is moderately reduced with estimated LV EF 30 TO 35%. Global hypokinesis, more prominent in the anteroseptal wall. Abnormal septal motion due to LBBB is noted. Overall LV function appears slightly worse than previous echocardiogram on 06/29/2015. Normal Right Ventricular size and contractility. No hemodynamically significant valvular abnormalities. Left Heart Cath 06/06/12: SUMMARY: 1. Moderate two-vessel disease, distal left anterior descending and the proximal segment of the second obtuse marginal branch. 2. Normal left ventricular end-diastolic pressure. Assessment & Plan: Demetrius Roe is a 73-y.o. 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 ICD-9-CM ICD-10-CM 1. Paroxysmal atrial fibrillation (HCC) 427.31 I48.0 AMBULATORY 12 LEAD EKG ( GLOBAL) 2. Chronic systolic HF (heart failure) (HCC) 428.22 I50.22 3. ICD (implantable cardioverter-defibrillator), biventricular, in situ V45.02 Z95.810 1. Nonischemic Cardiomyopathy with NYHA Class II symptoms: Symptoms have worsened in past couple of months, likely related to the atrial flutter (see below). Recommendations are as follows: Most recent LV function: 45-50% (assessed on 07/11/18 by echo). Beta-joseph: Cont carvedilol. SHAISTA-inhibitor or ARB: Cont benazepril. Aldosterone Antagonist: Not on; will hold off on starting at this time but if he continues to have bothersome sxs once back in NSR then I'll consider starting that med. Diuretics: OK to cont Lasix as-is for now. Devices: Has BiV ICD and follows with the [facility] for that. Has appt with them in [place] tomorrow (see below). 2. Paroxysmal Atrial Fibrillation/Flutter: The etiology of atrial fibrillation/ flutter in this patient is most likely related to HTN and CHF. The heart-rate is currently marginally controlled on the current medical regimen. This patient' s ENV6PD3-Frjl score is 4. I recommend the following treatment strategy and medical regimen for this patient: Stroke prevention: Based on the patient's UDS1UX3-Hxia risk profile, I recommend continuing OACtherapy. NOACs have been offered in the past but are too expensive. Rate control: Cont carvedilol. Rhythm control: N/A; pt was previously rarely in Afib by device checks. However, starting a few months ago he's been in atrial flutter and I believe that's the reason he's been more symptomatic of late. I explained to him that I feel we should pursue a rhythm control approach in his case both b/c he's symptomatic and b/c of his mild cardiomyopathy. We are going to start with a simple cardioversion, which I'm going to try to arrange tomorrow when he's scheduled to be in [place] for his [facility] appt. 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 If he reverts to Afib/flutter after that then I'm going to refer him to EP to see if they feel an ablation would be better than putting him on antiarrhythmic meds (which I'd prefer in his case if they agree). 3. Nonobstructive Coronary Artery Disease by cath 2011: Currently asymptomatic from an ischemic standpoint. I recommend the following medical regimen: Antiplatelets: Off ASA given the higher bleeding risk with concurrent Coumadin therapy. Statin: Was doing fine on low dose atorvastatin but it's being held for a month to see if his fatigue improves. It hasn't improved yet, and I believe the fatigue is related to his atrial flutterrather than a med effect. Thank you for allowing me to participate in the care of Demetrius Roe. We will plan on f/u in ouroffice in ~3-4 weeks after his cardioversion. If you have any questions or concerns please feel free to call our office at . Ethan Sanchez MD, 02/04/2019, 16:51 This note was created using my previous note as a template; changes were made where appropriate, andall information in the current note is up to date to the best of my knowledge. documented in this encounter Plan of Treatment Date Type Specialty Care Team Description 02/05/2019 [facility] Arrhythmia Center 02/05/2019 Research Encounter Malu Rodgers, RN [address] [id number] 02/27/2019 AntiCoag Anticoagulation 02/27/2019 Office Visit Cardiology Ethan Sanchez MD [address] [place] [id number] 05/13/2019 Office Visit Internal Medicine Rohan Shoemaker MD [address] [place] [address] [id number] 06/17/2019 [facility] Arrhythmia Center 07/17/2019 Office Visit Cardiology Ethan Sanchez MD [address] [place] [id number] 10/15/2019 [facility] Arrhythmia Center Name Type Priority Associated Order Schedule Diagnoses AMBULATORY 12 LEAD EKG Routine Paroxysmal atrial Ordered: EKG (GLOBAL) fibrillation (HCC) 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 record my blood pressure results. Migel is safe and secure way for you [...] Educational Resources: National Heart, Lung, & Blood [place] http://nhlbi.nih.gov/hbp/index.html The DASH Diet Eating Plan http://www.nhlbi.nih.gov/health/health-topics/ [...] increase vs. 18 mo min CHF 0 (02/04/2019 4:18 PM EDT) Rohan Leonard MD (lbs) < [...] the number on the left). Consume a [id number] diet Lifestyle No Rohan Shoemaker MD Note: [...] is an individualized self-management goal for Demetrius Perkins Roe: Please check your weight daily. Refer to the accompanying CHF treatment goal and call your doctor immediately for further instructions on how to respond to unexpected weight gain. documented as of this encounter Implants Implanted Type Area Hotel Maintenance Technician Device Shelf Model / Identifier Expiration Serial / Date Lot Altrua 20 Left: GUIDANT CARDIAC [id number] / Implanted: Qty: 1 on 03/31/2008 at [facility] [place] , [place] [id number] / Lda 210q/65 Optisure - [id number] N/A: Chest [employer], 2016 [id number] / Implanted: Qty: 1 on 02/11/2016 by Randell Cuba MD at [facility]. [id number] / Optisense Lead - [id number] N/A: Chest [employer], 2018 / Implanted: Qty: 1 on 02/11/2016 by Randell Cuba MD at [facility] [id number] / Renny White Mp [id number] Risk Consulting Treasury Director-D - [id number] N/A: Chest [employer] , 12/23/2017 [id number] / Implanted: Qty: 1 on 02/11/2016 by Randell Cuba MD at [facility] [id number] / Quartet Lead [id number] N/A: Chest [facility] [employer] 1457Q-86 / Implanted: Qty: 1 on 02/11/2016 by Randell Cuba MD at [facility] MEDICAL/PACESETTE [id number] / R documented as of this encounter Results Not on filedocumented in this encounter Visit Diagnoses Diagnosis Paroxysmal atrial fibrillation (HCC) - Primary Atrial fibrillation Chronic systolic HF (heart failure) (HCC) Chronic systolic heart failure ICD (implantable cardioverter-defibrillator), biventricular, in situ documented in this encounter Insurance Payer Benefit Plan / Subscriber ID Effective Dates Phone Address Type Group MEDICARE MEDICARE PART A & xxxxxxxxxxx 2008-Present Medicare B [facility] xxxxxxxxx Effective for all [place] dates (Home) [address] [phone] [place] [address] (Work) documented as of this encounter
--- NOTE | 2019-02-09 19:18 | ED ---
GI/ HPI - HPI Summary HPI Summary: This patient is a 73 year old male presenting to [facility] with a chief complaint of urinary retention and constipation since 16 hours ago. He states he is having very loose bowel movement, and thinks he has stool stuck at his rectum. His last BM was 16 hours ago. He reports pelvic pain and rates it 5/10 in severity. He has a Hx of enlarged prostate and HTN. - History of Current Complaint Chief Complaint: EDUrogenitalProblems Time Seen by Provider: 02/09/19 19:11 Stated Complaint: UNABLE TO URINATE PER PT Hx Obtained From: Patient Onset/Duration: Started Hours Ago Timing: Lasting Hours Severity: Moderate Current Severity: Moderate Pain Intensity: 5 - Allergy/Home Medications Allergies/Adverse Reactions: Allergies Allergy/AdvReac Type Severity Reaction Status Date / Time No Known Allergies Allergy Verified 02/09/19 18:55 PMH/Surg Hx/FS Hx/Imm Hx Cardiovascular History: Reports: Hx Hypertension, Hx Pacemaker/ICD History: Reports: Other Problems/Disorders - Enlarged Prostate Infectious Disease History: No Infectious Disease History: Denies: Traveled Outside the [place] in Last 30 Days - Family History Known Family History: Positive: Hypertension - Social History Lives: With Family Hx Substance Use: No Review of Systems Positive: Abdominal Pain - Pelvic pain Positive: pain, other - Urinary retention, constipation. All Other Systems Reviewed And Are Negative: Yes Physical Exam - Summary Physical Exam Summary: Appearance: Well appearing, no pain distress Skin: warm, dry, reflects adequate perfusion Head/face: normal Eyes: EOMI, DWIGHT ENT: normal Neck: supple, non-tender Respiratory: CTA, breath sounds present Cardiovascular: Tachycardia. pulses symmetrical Abdomen: Pelvic tenderness, bladder distension. Musculoskeletal: normal, strength/ROM intact Neuro: normal, sensory motor intact, A&Ox3 Triage Information Reviewed: Yes Vital Signs On Initial Exam: Initial Vitals Temp Pulse Resp BP Pulse Ox 98.8 F 65 18 141/101 95 02/09/19 18:50 02/09/19 18:50 02/09/19 18:50 02/09/19 18:50 02/09/19 18:50 Vital Signs Reviewed: Yes Diagnostics - Vital Signs Vital Signs Temp Pulse Resp BP Pulse Ox 02/09/19 18:50 98.8 F 65 18 141/101 95 - Laboratory Result Diagrams: 02/09/19 19:30 02/09/19 19:30 Lab Statement: Any lab studies that have been ordered have been reviewed, and results considered in the medical decision making process. - Ultrasound No standard instances Ultrasound Interpretation Completed By: ED Physician Summary of Ultrasound Findings: Bedside Bladder U/S: 900 CCs of urine in the bladder. - EKG 1928 Cardiac Rate: Tachycardia - 104 BPM Summary of EKG Findings: Paced Rhythm. GIGU Course/Dx - Course Course Of Treatment: This patient is a 73 year old male presenting to [facility] with a chief complaint of urinary retention and constipation since 16 hours ago. Physical exam revealed tachycardia and bladder distension. Bladder U/S at bedside revealed 900 CCs of urine in the bladder. A jon catheter was placed and the patient felt better. The pacemaker wasn't interrogationed. There were no abnormal rhythms. The patient will be referred to a urologist and discharged. - Diagnoses Differential Diagnoses - Male: Urinary Tract Infection - urinary retention Provider Diagnoses: Urinary retention Discharge - Sign-Out/Discharge Documenting (check all that apply): Patient Departure - Discharge Patient Received Moderate/Deep Sedation with Procedure: No - Discharge Plan Condition: Stable Disposition: HOME Patient Education Materials: Urinary Retention in Men (ED) Referrals: Maxwell Martins MD [Medical Doctor] - 3 Days Additional Instructions: Follow up with urology in 3 days. Return to ED with any new or worsening symptoms. - Billing Disposition and Condition Condition: STABLE Disposition: Home - Attestation Statements Document Initiated by Julianna: Yes Documenting Scribe: Zhao Rankin Provider For Whom Julianna is Documenting (Include Credential): Jeremías Mcgill MD Scribe Attestation: Zhao Mckeon scribed for Jeremías Mcgill MD on 02/09/19 at 2200. Scribe Documentation Reviewed: Yes Provider Attestation: The documentation as recorded by the Zhao sotelo accurately reflects the service I personally performed and the decisions made by me, Jeremías Mcgill MD Status of Scribe Document: Viewed
[2019-02-09 19:45] LABS: ABS Basophils 0.1 10^3/ul (0-0.2); ABS Lymphocytes 0.8 10^3/ul (1.0-4.8); ABS Monocytes 1.1 10^3/ul (0-0.8); ABS Neutrophils 11.5 10^3/ul (1.5-7.7); Eosinophil % 0.2 %; Hematocrit 55 % (42-52); Hemoglobin 18.1 g/dL (14.0-18.0); Lymphocyte % 6.1 %; Mean Corpuscular HGB Conc 33 g/dL (31-36); Mean Corpuscular Hemoglobin 30 pg (27-31); Mean Corpuscular Volume 92 fL (80-94); Mean Platelet Volume 7.4 fL (7.4-10.4); Platelet Count 148 10^3/uL (150-450); Red Blood Count 5.95 10^6 /uL (4.18-5.48); Red Cell Distribution Width 14 % (10-15); White Blood Count 13.6 10^3/uL (3.5-10.8)
[2019-02-09 19:53] LABS: Activated Partial Thrombo Time 52.1 seconds (26.0-38.0); INR 2.76 (0.82-1.09)
[2019-02-09 20:03] LABS: Albumin 4.3 g/dL (3.2-5.2); Albumin/Globulin Ratio 1.6 (1-3); BUN/Creatinine Ratio 16.3 (8-20); Calcium 9.6 mg/dL (8.6-10.3); EGFR African American 59.3 (>60); Globulin 2.7 g/dL (2-4); Potassium 4.1 mmol/L (3.5-5.0); Total Bilirubin 0.9 mg/dL (0.2-1.0)
[2019-02-09 20:05] LABS: Urine Appearance Clear; Urine Bacteria Absent (Absent); Urine Bilirubin Negative (Negative); Urine Blood 1+ (Negative); Urine Color Yellow; Urine Glucose Negative (Negative); Urine Ketones Negative (Negative); Urine Nitrite Negative (Negative); Urine Protein Negative (Negative); Urine Red Blood Cell Trace(0-2/hpf) (Absent); Urine Specific Gravity 1.013 (1.010-1.030); Urine Urobilinogen Negative (Negative); Urine White Blood Cell Trace(0-5/hpf) (Absent)
[2019-02-09 20:53] VITALS: BP 137/94
== END 2019-02-09 21:23 | disposition home or self-care (01) ==
LOC: ED 18:46
DX: R33.9 Retention of urine, unspecified (principal); I10 Essential (primary) hypertension; N40.0 Benign prostatic hyperplasia without lower urinary tract symptoms; Z95.0 Presence of cardiac pacemaker
CPT/HCPCS: 36415; 71045; 80053; 81003; 81015; 83605; 83880; 84484; 85025; 85610; 85730; 87086; 93005; 99282